=== PATIENT | male | born 1980 | race Caucasian/White ===

== ENCOUNTER 2017-11-19 12:03 | Emergency (ER) | payer MEDICAID ==
[~2017-11-19] VITALS: Ht 180.3 cm; Wt 68.0 kg
[~2017-11-19 12:03] MED LIST: CLON2TAB PO; OXCA600T5 PO; SERT100T PO
[2017-11-19] MEDS ORDERED: LEVE500T9 PO (12:15)
[2017-11-19] MEDS ORDERED: DIAZ5TAB4 PO (12:15)
--- NOTE | 2017-11-19 12:20 | NUR ---
Dr Rodrigues at the bedside for MSE.
[2017-11-19] MEDS ORDERED: LORAZEPAM 1 MG TABLET ONE (12:25)
[2017-11-19] MEDS: LORAZEPAM 0.5 MG TABLET PO ONE (12:29)
--- NOTE | 2017-11-19 12:53 | NUR ---
Patient is resting comfortably in bed with eyes closed, no seizure activity noted so far. Continue monitoring.
--- NOTE | 2017-11-19 13:24 | NUR ---
Patient discharged to home in stable conditon. Written and verbal after care instructions given. Patient verbalizes understanding of instructions.pt walks in steady gait.
[2017-11-19 13:25] VITALS: BP 126/69
== END 2017-11-19 13:26 | disposition home or self-care (01) ==
LOC: ER 12:05
DX: R56.9 Unspecified convulsions (principal); F41.9 Anxiety disorder, unspecified; Z79.899 Other long term (current) drug therapy
CPT/HCPCS: A4663

== ENCOUNTER 2017-12-09 13:54 | Emergency (ER) | payer MEDICAID ==
[~2017-12-09] VITALS: Ht 180.3 cm; Wt 68.0 kg
[~2017-12-09 13:54] MED LIST changes: -CLON2TAB PO; +DIAZ5TAB4 PO; +LEVE500T9 PO
--- NOTE | 2017-12-09 14:42 | NUR ---
Patient discharged to home in stable conditon. Written and verbal after care instructions given. Patient verbalizes understanding of instructions.
== END 2017-12-09 14:44 | disposition home or self-care (01) ==
LOC: ER 13:54
DX: G40.909 Epilepsy, unspecified, not intractable, without status epilepticus (principal); Z76.0 Encounter for issue of repeat prescription; Z79.899 Other long term (current) drug therapy
CPT/HCPCS: A4663

== ENCOUNTER 2018-06-19 22:40 | Emergency (ER) | payer MEDICAID ==
[~2018-06-19] VITALS: Ht 180.3 cm; Wt 70.3 kg
--- NOTE | 2018-06-19 23:12 | NUR ---
Dr. Chang at bedside for MSE.
[2018-06-19] MEDS ORDERED: TDAP DIPH,PERTUSS,TET VAC/PF 0.5 ML DISP.SYRIN IM ONE ×2 (23:15→23:16)
--- NOTE | 2018-06-19 23:40 | NUR ---
Patient discharged to home in stable conditon. Written and verbal after care instructions given. Patient verbalizes understanding of instructions. Pt ambulated out of ER with steady gait, no acute signs of distress, VSS, all belongings taken.
[2018-06-19 23:42] VITALS: BP 125/82
[2018-06-19] MEDS ORDERED: NEOMY/BACITRA/POLYMYXIN B OINT UD PACKET TP ONE ×2 (23:44→23:45)
== END 2018-06-19 23:45 | disposition home or self-care (01) ==
LOC: ER 22:44
DX: S61.213A Laceration without foreign body of left middle finger without damage to nail, initial encounter (principal); W26.8XXA Contact with other sharp object(s), not elsewhere classified, initial encounter; Y93.89 Activity, other specified; Y92.89 Other specified places as the place of occurrence of the external cause; Y99.8 Other external cause status
CPT/HCPCS: 90715; A4663

== ENCOUNTER 2019-01-19 14:00 | Emergency (ER) | payer MEDICAID, OTHER ==
[~2019-01-19] VITALS: Ht 180.3 cm; Wt 70.3 kg
[2019-01-19] MEDS ORDERED: LORAZEPAM 1 MG TABLET ONE (14:23)
[2019-01-19] MEDS ORDERED: LORAZEPAM 0.5 MG TABLET PO ONE (14:30)
[2019-01-19 16:23] VITALS: BP 131/72
--- NOTE | 2019-01-19 16:23 | NUR ---
PT WAS D/C'd TO HOME. D/C INSTRUCTIONS GIVEN TO THE PT.
== END 2019-01-19 16:24 | disposition home or self-care (01) ==
LOC: ER 14:02
DX: S60.212A Contusion of left wrist, initial encounter (principal); R56.9 Unspecified convulsions; Z76.0 Encounter for issue of repeat prescription; Z79.899 Other long term (current) drug therapy; W18.39XA Other fall on same level, initial encounter; Y93.89 Activity, other specified; Y92.89 Other specified places as the place of occurrence of the external cause; Y99.8 Other external cause status
CPT/HCPCS: 73110; A4663